=== PATIENT | female | born 1985 | race Caucasian/White ===

== ENCOUNTER 2017-08-13 11:18 | Emergency (ER) | payer MEDICAID ==
[~2017-08-13] VITALS: Ht 156.2 cm; Wt 102.6 kg
[2017-08-13 11:33] VITALS: BP 150/103
--- NOTE | 2017-08-13 11:38 | NUR ---
Patient ambulated to bed 11. RN evaluating patient at bedside.
--- NOTE | 2017-08-13 11:39 | NUR ---
31F BIB FAMILY C/O MID-LOWER ABDOMINAL PAIN X YESTERDAY. HX: GESTATIONAL DIABETES. AAOX4 WITH EVEN AND STEADY GAIT; LUNGS CLEAR BL; PT DENIES ANY FEVER, CP, SOB, OR COUGH AT THIS TIME; PATIENT STATES PAIN OF 3/10 AT THIS TIME; PATIENT POSITIONED FOR COMFORT; HOB ELEVATED; BEDRAILS UP X2; BED DOWN. ER MD MADE AWARE OF PT STATUS.
--- NOTE | 2017-08-13 11:45 | NUR ---
Dr. Aguilar evaluating patient at bedside.
[2017-08-13] MEDS ORDERED: KETOROLAC 30 MG/ML VIAL IM ONE (12:00)
[2017-08-13] MEDS ORDERED: cefTRIAXone 1,000 MG in LIDOCAINE 1% ***ER ONLY *** 2.1 ML IM ONE (12:00)
[2017-08-13] MEDS ORDERED: HYDROmorphone PFS 2 MG/ML SYR IM ONE (12:00)
[2017-08-13 12:48] VITALS: BP 133/90
--- NOTE | 2017-08-13 12:51 | NUR ---
Patient discharged with BP 133/90, DENIES HEADACHE AT THIS TIME, MD MADE AWARE. Written and verbal after care instructions given and explained. Patient alert, oriented and verbalized understanding of instructions. Ambulatory with steady gait. All questions addressed prior to discharge. ID band removed. Patient advised to follow up with PMD. Rx of CIPRO & VOLTAREN given. Patient educated on indication of medication including possible reaction and side effects. Opportunity to ask questions provided and answered.
== END 2017-08-13 12:51 | disposition home or self-care (01) ==
LOC: MED 11:18
DX: N39.0 Urinary tract infection, site not specified (principal); E11.9 Type 2 diabetes mellitus without complications
CPT/HCPCS: 81002; 81025; 96372; 99284; J0696; J1170; J1885; J2001

== ENCOUNTER 2018-02-12 10:49 | Emergency (ER) | payer MEDICAID ==
[~2018-02-12] VITALS: Ht 152.4 cm; Wt 98.9 kg
[~2018-02-12 10:49] MED LIST: ACET-5629 PO; CIPR500T4 PO; MER1I IV; METR250T2 PO
[2018-02-12 10:53] VITALS: BP 147/91
--- NOTE | 2018-02-12 11:00 | NUR ---
PT AMB TO BED 6
--- NOTE | 2018-02-12 11:00 | NUR ---
BIB SELF FOR REQUESTING TO REMOVE PIC LINE REYNA; CYST REMOVAL 01/28/2018. HX; CYST, ECOLI INFECTION,DM. DENIES N/V/D; SKIN IS PINK/WARM/DRY; AAOX4 WITH EVEN AND STEADY GAIT; LUNGS CLEAR BL; HR EVEN AND REGULAR; PT DENIES ANY FEVER, CP, SOB, OR COUGH AT THIS TIME; PATIENT STATES PAIN OF 0/10 AT THIS TIME; VSS; PATIENT POSITIONED FOR COMFORT; HOB ELEVATED; BEDRAILS UP X2; BED DOWN. ER MD MADE AWARE OF PT STATUS.
--- NOTE | 2018-02-12 11:01 | NUR ---
Patient being evaluated by DR CAICEDO at bedside.
--- NOTE | 2018-02-12 11:09 | NUR ---
REMOVED PICC REYNA. PT TOLERATED PROCEDURE WELL.
[2018-02-12 12:07] VITALS: BP 130/90
--- NOTE | 2018-02-12 12:08 | NUR ---
Patient discharged with v/s stable. Written and verbal after care instructions given and explained. Patient alert, oriented and verbalized understanding of instructions. Ambulatory with steady gait. All questions addressed prior to discharge. ID band removed. Patient advised to follow up with PMD. Rx of METFORMIN 500 MG BID AND DIABETIC SUPPLIES given. Patient educated on indication of medication including possible reaction and side effects. Opportunity to ask questions provided and answered.
== END 2018-02-12 12:08 | disposition home or self-care (01) ==
LOC: MED 10:49
DX: Z45.2 Encounter for adjustment and management of vascular access device (principal); E11.9 Type 2 diabetes mellitus without complications; Z79.899 Other long term (current) drug therapy
CPT/HCPCS: 99283

== ENCOUNTER 2019-01-30 11:36 | Emergency (ER) | payer SELFPAY ==
[~2019-01-30] VITALS: Ht 152.4 cm; Wt 102.7 kg
[2019-01-30 11:41] VITALS: BP 159/86
--- NOTE | 2019-01-30 11:46 | NUR ---
PT RETURNED TO LOBBY IN STABLE CONDITION. URINE SAMPLE COLLECTED.
--- NOTE | 2019-01-30 12:24 | NUR ---
PT. AMBULATED TO ER BED 8
--- NOTE | 2019-01-30 12:30 | NUR ---
33 Y FEMALE BIB SELF C/O LOWER ABD PAIN, DENIES PAINFUL URINATION. PAIN 8/10. BM THIS AM. DENIES CONSTIPATION OR DIARRHEA. ABDOMEN TENDER TO TOUCH, SOFT AND ROUND. BOWEL SOUNDS ACTIVE IN ALL 4 QUADRANTS. PT TACHY AT 112. AA0X4. BED IS DOWN, LOCKED, BED RAILX 1, ERMD NOTIFIED. PMH- UNCONTROLLED DIABETES
[2019-01-30 13:31] LABS: APPEARANCE,URINE CLOUDY (CLEAR); BILIRUBIN,URINE NEGATIVE (NEGATIVE); BLOOD, URINE 2+ (NEGATIVE); COLOR,URINE ORANGE (YELLOW); LEUKOCYTE ESTERASE ,URINE 1+ (NEGATIVE); NITRITE, URINE NEGATIVE (NEGATIVE); UGLUCOSE 3+ (NEGATIVE)
[2019-01-30 13:32] LABS: BASOPHILS # (AUTO) 0.1 K/uL (0.00-0.22); EOSINOPHILS # (AUTO) 0.1 K/uL (0-0.4); EOSINOPHILS % (AUTO) 0.5 % (0.0-4.0); HEMATOCRIT 38.7 % (36-48); HEMOGLOBIN 12.8 g/dL (12.0-16.0); LYMPHOCYTES # (AUTO) 1.8 K/uL (2.5-16.5); LYMPHOCYTES % (AUTO) 13.9 % (20.5-51.1); MEAN CORPUSCULAR HEMOGLOBIN 28 pg (27-31); MEAN CORPUSCULAR HGB CONC 33 g/dL (33-37); MEAN CORPUSCULAR VOLUME 84.6 fL (80-94); MONOCYTES # (AUTO) 0.8 K/uL (0.8-1.0); MONOCYTES % (AUTO) 6.6 % (1.7-9.3); PLATELET COUNT (AUTO) 315 K/uL (140-450); RED BLOOD CELL COUNT(AUTO) 4.58 MIL/uL (4.20-5.40); RED CELL DISTRIBUTION WIDTH 13.8 % (11.6-13.7); WHITE BLOOD COUNT (AUTO) 12.9 K/uL (4.8-10.8)
[2019-01-30 13:44] LABS: RBC,URINE >100 /HPF (0-5); WBC,URINE TOO MANY TO COUNT /HPF (0-5)
[2019-01-30 13:48] LABS: ALBUMIN 3.1 g/dL (3.4-5.0); ANION GAP 12.8 (8-16); CREATININE 0.7 mg/dL (0.6-1.3); POTASSIUM 3.8 mmol/L (3.5-5.1); TOTAL BILIRUBIN 0.5 mg/dL (0.0-1.0)
--- NOTE | 2019-01-30 13:50 | NUR ---
VSS AT THIS TIME, PT COMPAINING OF 8/10 PAIN. PT LAYING IN BED, AA0X4
--- NOTE | 2019-01-30 13:52 | NUR ---
DR RIVERA AT BEDSIDE
[2019-01-30] MEDS ORDERED: NACL 0.9% 1,000 ML IV ONE (13:55)
[2019-01-30] MEDS ORDERED: KETOROLAC 30 MG/ML VIAL IVP ONE (13:55)
[2019-01-30] MEDS ORDERED: ONDANSETRON 4 MG/2 ML VIAL IVP ONE (13:55)
--- NOTE | 2019-01-30 14:03 | NUR ---
PT BEING TAKEN TO CT
--- NOTE | 2019-01-30 15:05 | NUR ---
PT SLEEPIN IN BED
[2019-01-30] MEDS ORDERED: cefTRIAXone 1,000 MG VIAL ONE (15:36)
--- NOTE | 2019-01-30 16:20 | NUR ---
PT SLEEPING IN BED
[2019-01-30 17:07] VITALS: BP 127/75
--- NOTE | 2019-01-30 17:07 | NUR ---
Patient discharged with v/s stable. Written and verbal after care instructions given and explained. Patient alert, oriented and verbalized understanding of instructions. Ambulatory with steady gait. All questions addressed prior to discharge. ID band removed. Patient advised to follow up with PMD. Rx of KELFEX AND NORCO AND ZOFRAN given. Patient educated on indication of medication including possible reaction and side effects. Opportunity to ask questions provided and answered.
== END 2019-01-30 17:07 | disposition home or self-care (01) ==
LOC: MED 11:36
DX: N39.0 Urinary tract infection, site not specified (principal); E11.9 Type 2 diabetes mellitus without complications; R03.0 Elevated blood-pressure reading, without diagnosis of hypertension; Z79.899 Other long term (current) drug therapy
CPT/HCPCS: 36415; 74176; 76830; 80053; 81001; 81025; 82948; 83690; 85025; 87086; 87186; 93976; 96365; 96375; 99284; J0696; J1885; J2405; J7030; J7060; Q0092

== ENCOUNTER 2022-03-07 09:19 | Inpatient (IN) | payer MEDICAID ==
[~2022-03-07] VITALS: Ht 167.6 cm; Wt 83.9 kg
[~2022-03-07 09:19] MED LIST changes: -MER1I IV; +MERO1VIA13 IV; +METR-520 PO; -METR250T2 PO
--- NOTE | 2022-03-07 09:24 | NUR ---
PT AMB TO BED 11.
[2022-03-07 09:39] VITALS: BP 152/91
[2022-03-07] MEDS ORDERED: PIPERACILLIN/TAZOBACTAM 3.375 GM in DEXTROSE 5% 50 ML IV ONE (10:00)
[2022-03-07] MEDS ORDERED: MORPHINE SULFATE 4 MG/ML SYR IVP ONE (10:00)
[2022-03-07] MEDS ORDERED: NACL 0.9% 1,000 ML IV ONE (10:00)
[2022-03-07] MEDS ORDERED: ONDANSETRON 4 MG/2 ML VIAL IVP ONE (10:00)
[2022-03-07] MEDS ORDERED: PIPERACILLIN/TAZOBACTAM 3.375 GM VIAL IV ONE (10:09)
--- NOTE | 2022-03-07 10:13 | NUR ---
AGUILAR SPECIMEN OBTAINED AND HANDED TO CPT NAN AT BEDSIDE.
--- NOTE | 2022-03-07 10:23 | NUR ---
IV INSERTED TO LEFT AC #20GUAGE, MEDICATED PER ORDER. FLUIDS INFUSING TOLERATING WELL.
[2022-03-07 10:37] LABS: BASOPHILS % (AUTO) 0.5 % (0.0-2.0); EOSINOPHILS # (AUTO) 0.2 K/uL (0-0.4); EOSINOPHILS % (AUTO) 2.1 % (0.0-4.0); HEMATOCRIT 39.8 % (36-48); HEMOGLOBIN 13.5 g/dL (12.0-16.0); LYMPHOCYTES % (AUTO) 31.9 % (20.5-51.1); MEAN CORPUSCULAR HEMOGLOBIN 27 pg (27-31); MEAN CORPUSCULAR HGB CONC 34 g/dL (33-37); MEAN CORPUSCULAR VOLUME 80.6 fL (80-94); MONOCYTES # (AUTO) 0.6 K/uL (0.8-1.0); NEUTROPHILS # (AUTO) 5.7 K/uL (1.8-7.7); NEUTROPHILS % (AUTO) 59.5 % (42.2-75.2); PLATELET COUNT (AUTO) 331 K/uL (140-450); RED BLOOD CELL COUNT(AUTO) 4.94 MIL/uL (4.20-5.40); RED CELL DISTRIBUTION WIDTH 13.4 % (11.6-13.7); WHITE BLOOD COUNT (AUTO) 9.6 K/uL (4.8-10.8)
[2022-03-07 10:53] LABS: ALBUMIN 3.3 g/dL (3.4-5.0); ANION GAP 18.5 (8-16); CARBON DIOXIDE 20.4 mmol/L (21-32); CREATININE 0.6 mg/dL (0.6-1.3); POTASSIUM 3.9 mmol/L (3.5-5.1); TOTAL BILIRUBIN 0.3 mg/dL (0.0-1.0)
--- NOTE | 2022-03-07 11:59 | NUR ---
URINE SPECIMEN OBTAINED AND WALKED TO LAB, HANDED TO CPT. NAN
[2022-03-07 12:12] LABS: APPEARANCE,URINE HAZY (CLEAR); BILIRUBIN,URINE NEGATIVE (NEGATIVE); BLOOD, URINE 2+ (NEGATIVE); COLOR,URINE YELLOW (YELLOW); LEUKOCYTE ESTERASE ,URINE TRACE (NEGATIVE); NITRITE, URINE POSITIVE (NEGATIVE); PH,URINE 5.5 (5.0-9.0); UGLUCOSE 3+ (NEGATIVE)
[2022-03-07 12:19] LABS: RBC,URINE 11-20 (MOD) /HPF (0-5)
--- NOTE | 2022-03-07 12:26 | NUR ---
PT BACK FROM CT
--- NOTE | 2022-03-07 16:56 | NUR ---
PATIENT HAS PAIN. NO PAIN MEDICATIONS ARE ORDERED. INFORMED DR. ARMAS AND RECIEVED NEW ORDERS FOR IV MORPHINE 2 MG Q4 HOURS PRN. WILL CARRY OUT ORDERS.
[2022-03-07] MEDS: MORPHINE SULFATE 2 MG/ML SYR IVP PRN ×2 (17:21→23:19)
--- NOTE | 2022-03-07 17:34 | NUR ---
Patient will be admitted to care of DR. ARMAS. Admited to TELEMETRY . Will go to room 123-A. Belongings list completed. Report to NEMO ADAMS.
[2022-03-07 17:50] VITALS: BP 141/79
--- NOTE | 2022-03-07 17:50 | NUR ---
RECEIVED PATIENT FROM ER NURSE VIA CHLOÉ. PT ADMITTED FOR CELLULITIS PELVIC, HYPERGLYCEMIA. PT IS AOX4, ABLE TO MAKE NEEDS KNOWN. RESPIRATIONS EVEN AND UNLABORED. ON ROOM AIR AND NO DISTRESS NOTED. SKIN IS WARM, DRY, AND NON-INTACT. NOTED ABSCESS ON RIGHT PELVIC AREA. IV SITE ON LAC 20G. SALINE LOCKED. ABD IS SOFT, FLAT, AND NON-DISTENDED. BOWEL SOUNDS ACTIVE IN ALL QUADRANTS. PAIN IS 5/10. MORPHINE WAS GIVEN IN ER. WILL MEDICATE PER MD ORDERED. PLAN OF CARE DISCUSSED. SAFETY PRECAUTIONS IN PLACE. CALL LIGHT WITHIN REACH. WILL CONTINUE TO MONITOR.
--- NOTE | 2022-03-07 18:23 | NUR ---
The patient's care was reviewed and supervised by ED Agency Nurse 7, RN, RN.
--- NOTE | 2022-03-07 19:35 | NUR ---
ENDORSED TO COOLING SYSTEM OPERATOR NURSE FOR CONTINUITY OF CARE. PT IS STABLE.
--- NOTE | 2022-03-07 20:26 | NUR ---
THIS IS AN ADMISSION FOR A 36 YEAR OLD FEMALE UNDER THE CARE OF DOCTOR ARMAS FOR CELLULITIS AND HYPERGLYCEMIA. RALPH PERRY RN
[2022-03-07 20:36] VITALS: BP 140/90
[2022-03-07] MEDS ORDERED: ACETAMINOPHEN 325 MG TAB PO PRN (23:05)
[2022-03-07 23:49] VITALS: BP 130/89
[2022-03-08] MEDS ORDERED: PIPERACILLIN/TAZOBACTAM 3.375 GM VIAL IV ONE ×2 (00:25→05:22)
[2022-03-08] MEDS: PIPERACILLIN/TAZOBACTAM 3.375 GM in DEXTROSE 5% 50 ML IV SCH ×5 (00:25→23:32)
[2022-03-08 04:24] VITALS: BP 126/77
--- NOTE | 2022-03-08 06:58 | NUR ---
PATIENT HAS BEEN SCREENED AND CATEGORIZED HIGH NUTRITION RISK. PATIENT WILL BE SEEN WITHIN 1-2 DAYS OF ADMISSION. 03/08/22-03/09/22 ABHISHEK MCCARTHY MS, RDN
[2022-03-08] MEDS: MORPHINE SULFATE 2 MG/ML SYR IVP PRN ×2 (09:03→18:28)
[2022-03-08] MEDS: ONDANSETRON 4 MG/2 ML VIAL IVP PRN ×2 (09:03→18:28)
--- NOTE | 2022-03-08 19:53 | NUR ---
GET THE REPORT FROM MORNING NURSE JANE,PATIENT IS LYING ON BED, PATIENT IS ALERT AND ORIENTED X4 , CALL LIGHT IS WITHIN THE REACH ,WILL CONTINUE TO MONITOR PATIENT.
[2022-03-08 20:00] VITALS: BP 136/90
--- NOTE | 2022-03-08 20:00 | NUR ---
PATIENT IS LYING ON BED,VITAL SIGN IS WITHIN THE NORMAL RANGE, NO ANY COMPLAIN OF PAIN OR SHORTNESS OF BREATH AT THIS TIME, CALL LIGHT IS WITHIN THE REACH, WILL CONTINUE TO MONITOR PATIENT.
[2022-03-08] MEDS: HYDROcodone/APAP 5/325 MG 1 TAB TAB PO PRN (20:32)
--- NOTE | 2022-03-08 20:32 | NUR ---
PATIENT IS COMPLAINING OF PAIN AT HER RIGHT SITE ON HER PERINEAL AREA 6/, MEDICATED WITH NORCO 5/325 MG PO PRN PER DOCTOR ORDER, VITAL SIGN IS WITHIN THE NORMAL RANGE,WILL REASSESS PAIN IN HOUR, CALL LIGHT IS WITHIN THE REACH, WILL CONTINUE TO MONITOR PATIENT.
[2022-03-09] VITALS: BP 134/88
--- NOTE | 2022-03-09 00:31 | NUR ---
PATIENT IS LYING ON BED, NO ANY COMPLAIN OF PAIN OR SHORTNESS OF BREATH AT THIS TIME, ALL SCHEDULE MEDICATION IS GIVEN ASPER DOCTOR ORDER,VITAL SIGN IS WITHIN THE NORMAL RANGE , CALL LIGHT IS WITHIN THE REACH, WILL CONTINUE TO MONITOR PATIENT.
[2022-03-09 04:00] VITALS: BP 139/89
--- NOTE | 2022-03-09 04:17 | NUR ---
PATIENT IS LYING ON BED, NO ANY COMPLAIN OF PAIN OR SHORTNESS OF BREATH AT THIS TIME, VITAL SIGN IS WITHIN THE NORMAL RANGE , CALL LIGHT IS WITHIN THE REACH, WILL CONTINUE TO MONITOR PATIENT.
--- NOTE | 2022-03-09 04:37 | NUR ---
MORNING NURSE TOLD IN REPORT THAT PATIENT IS GOING FOR I&D IN MORNING, BUT LATER I CHECKEDAND THERE IS NO ORDER FOR I&D AND NPO , MASSAGE DOCTOR MAI ABOUT NO ORDER IN EMAR, STILL WAITING FOR DOCTOR TO RESPONSE , WILL CONTINUE TO MONITOR PATIENT.
[2022-03-09] MEDS: PIPERACILLIN/TAZOBACTAM 3.375 GM in DEXTROSE 5% 50 ML IV SCH ×3 (05:18→18:26)
--- NOTE | 2022-03-09 05:20 | NUR ---
PATIENT IS LYING ON BED , ALL SCHEDULE MEDICATION IS GIVEN PER DOCTOR ORDER, CALL LIGHT IS WITHIN THE REACH, WILL CONTINUE TO MONITOR PATIENT.
[2022-03-09] MEDS: MORPHINE SULFATE 2 MG/ML SYR IVP PRN (05:57)
--- NOTE | 2022-03-09 06:08 | NUR ---
PATIENT IS COMPLAINING OF PAIN 8/10 , MORPHINE 2MG/ML IV PRN IS GIVEN PER DOCTOR ORDER, WILL REASSESS PAIN LAVAL IN HOUR, CALL LIGHT IS WITHIN THE REACH,WILL CONTINUE TO MONITOR PATIENT.
--- NOTE | 2022-03-09 07:30 | NUR ---
GAVE THE REPORT TO MORNING NURSE DELLA FOR CONTINUOS OF CARE, PATIENT IS STABLE
--- NOTE | 2022-03-09 07:31 | NUR ---
RECEIVED REPORT FROM FIELD TECHNICIAN NURSE FOR CONTINUITY OF CARE. PT IN BED SLEEPING AT THIS TIME. RESPIRATIONS ARE EVEN AND UNLABORED ON ROOM AIR. NO SIGNS OF DISTRESS NOTED. PT IS ALERT AND ORIENTED X4, ABLE TO VERBALIZE NEEDS, ABLE TO FOLLOW COMMANDS. ABD IS NONTENDER, NONDISTENDED WITH BOWEL SOUNDS PRESENT. PT IS CONTINENT OF BOWEL AND BLADDER, ABLE TO AMBULATE TO REST ROOM INDEPENDENTLY. PT HAS IV TO L AC 20G, INTACT AND PATENT. SKIN IS WARM, DRY, AND INTACT. PT HAS R UPPER JOSE AREA ABSCESS, SOME DRAINAGE NOTED, COVERED. CALL LIGHT WITHIN REACH. ALL SAFETY MEASURES IN PLACE. WILL CONTINUE TO MONITOR.
[2022-03-09 08:00] VITALS: BP 132/88
--- NOTE | 2022-03-09 10:52 | NUR ---
PT AWAKE AND ASKING FOR ASSISTANCE TO REST ROOM. ASSISTED PT. PT TOLERATED WELL. WILL CONTINUE TO MONITOR.
--- NOTE | 2022-03-09 12:30 | NUR ---
GAVE TAZOBACTAM IVPG TO PT. IV INFUSING WELL.
--- NOTE | 2022-03-09 13:45 | NUR ---
PT IN BED, REQUEST TO ASSIST TO CLEAN HER UP AND TO COVER DRAINING ABSCESS WITH GAUZE. ASSISTED PT. PT TOLERATED WELL. WILL CONTINUE TO MONITOR.
--- NOTE | 2022-03-09 14:04 | NUR ---
DC PLANNING: THE PATIENT ADMITTED WITH C/O REDNESS PAIN AND SWELLING TO HER RIGHT PELVIC AREA X 1 WEEK. H/O GESTATIONAL DM. GLUCOSE 308, ESR 60, NA+ 135, CT PELVIS SHOWS LABIAL CYST. UA+, PATIENT STARTED ON ZOSYN IV, NORCO AND MORPHINE. ORDERS FOR ROLLER SHOP SUPERVISOR CONSULT. CM SPOKE WITH THE PATIENT AT BEDSIDE AND CONFIRMED HER CHANGE OF ADDRESS AND PHONE NUMBER, CHANGES GIVEN TO ADMITTING. THE PATIENT LIVES IN [place] IN A SINGLE STORY HOUSE WITH HER PARENTS BROTHER AND 6 YEAR OLD SON. SHE IS NORMALLY INDEPENDENT IN ALL ACTIVITIES, NO H/O HOME HEALTH OR DME. HAS INCOME OF $1200/MONTH FROM CHILD SUPPORT AND A CLEANING JOB. SHE DOES NOT HAVE A PMD BUT HAD A WELLNESS CHECK AT A CLINIC ON [address] NEAR [place] THREE YEARS AGO. SHE HAS HAD FULL SCOPE M/VIMAL IN THE PAST AND WAS ADVISED TO FOLLOW UP ON HER PRESUMPTIVE M/VIMAL WITHIN 30 DAYS TO GET INSURANCE IN PLACE. THE PATIENT WILL CONTINUE ON IV ABX AND POTENTIALLY BE DC'D IN AM ON PO ABX. THE PATIENTS FAMILY WILL PROVIDE TRANSPORT HOME, CM WILL FOLLOW.
[2022-03-09 16:00] VITALS: BP 130/75
--- NOTE | 2022-03-09 16:33 | NUR ---
03/09/22 RD INITIAL ASSESSMENT COMPLETED PLEASE REFER TO NUTRITION ASSESSMENT UNDER CARE ACTIVITY FOR ESTIMATED NUTRITIONAL NEEDS. 1. RECOMMEND REGULAR DIET IF PT BLOOD SUGAR IS WNL 2. MONITOR BLOOD GLUCOSE LEVELS 3. RD TO FOLLOW-UP 7 DAYS, LOW RISK ADRIANA SUAREZ RD
[2022-03-09] MEDS: HYDROcodone/APAP 5/325 MG 1 TAB TAB PO PRN (16:40)
--- NOTE | 2022-03-09 16:48 | NUR ---
PT IN BED ASKING IF SHE IS ABLE TO WALK AROUND UNIT. INFORMED PT THAT SHE IS ABLE TO, HOWEVER SHE DOES NEED TO WEAR A MASK. PT AMBULATED A FEW FEET AROUND UNIT. STATES PAIN IS GETTING BETTER. WILL CONTINUE TO MONITOR.
--- NOTE | 2022-03-09 19:10 | NUR ---
ENDORSED PT TO MANAGEMENT NURSE RN NURSE FOR CONTINUITY OF CARE. PT IS STABLE.
--- NOTE | 2022-03-09 19:11 | NUR ---
RECEIVED PATIENT FROM [facility] FOR CONTINUITY OF CARE. PATIENT WAS ALERT AND ORIENT X 4. WAS ABLE TO GO THO THE RESTROOM WITHOUT ASSISTANCE. PATIENT DENIED ANY PAIN/DISCOMFORT. PATIENT BREATHING UNLABORED. FATHER AT BEDSIDE FOR VISIT. DRESSING ON ABSCESS CLEAN AND DRY. PATIENT WAS ADVISED TO CALL NURSING WHEN IT NEEDS TO CHANGED PRN. SIDE RAILS UP X2. CALL LIGHT WITHIN REACH. ENCOURAGED TO USE FOR ASSISTANCE AND NEEDS. [email or web address]
--- NOTE | 2022-03-09 21:25 | NUR ---
PATIENT IN BED ASLEEP. SIDE RAILS X 2 FOR ASSISTANCE TO AMBULATE AND SELF ADJUST. PATIENT HAS CALL LIGHT WITHIN REACH. PATIENT WAS OBSERVED BREATHING WITHOUT ANY S/SX OF DISTRESS. NO NOTED S/SX OF PAIN/DISCOMFORT. [email or web address]
--- NOTE | 2022-03-09 23:58 | NUR ---
PATIENT REQUEST PRN PAIN MANAGEMENT. RN WAS NOTIFIED TO GIVE IVP MEDICATION 05/19 PAIN. NURSING WILL MONITOR FOR PAIN RELIEF IN ONE HOUR AFTER ADMINISTRATION. [email or web address]
[2022-03-10] VITALS: BP 121/74
[2022-03-10] MEDS: PIPERACILLIN/TAZOBACTAM 3.375 GM in DEXTROSE 5% 50 ML IV SCH ×3 (00:17→11:19)
[2022-03-10] MEDS: MORPHINE SULFATE 2 MG/ML SYR IVP PRN (00:27)
--- NOTE | 2022-03-10 01:31 | NUR ---
PATIENT IN BED HOB ELEVATED FOR COMFORT. PATIENT HAS HAD HER PRN MEDICATION PAIN MEDICATION. NO ADVERSE REACTION. PATIENT HAS HER EAR PHONES ON FOR RELAXATION. PATIENT HAS CALL LIGHT WITHIN REACH FOR ANY NEEDS AND ASSISTANCE. [email or web address]
--- NOTE | 2022-03-10 07:44 | NUR ---
RECEIVED REPORT FROM NIGHTSHIFT NURSE FOR CONTINUITY OF CARE. PLAN OF CARE DISCUSSED. PT CURRENTLY SLEEPING, A/OX4. BREATHING EVEN, REGULAR AND UNLABORED ON RA. PT AMBULATORY, CONTINENT OF THE BOWEL AND BLADDER. ABSCESS ON THE PERINEAL AREA NOTED. IV SITE CLEAN, DRY AND INTACT. PT DENIES PAIN AT THIS TIME.
--- NOTE | 2022-03-10 07:44 | NUR ---
ENDORSED PATIENT TO FREDDY CHESTER FOR CONTINUITY OF CARE. PATIENT WAS STABLE AT THE CHANGE OF SHIFT. [email or web address]
[2022-03-10 08:00] VITALS: BP 118/83
--- NOTE | 2022-03-10 09:05 | NUR ---
DR. MANUEL ROUNDED ON PT TO DISCUSS PLAN OF CARE. PER MD, PT WILL BE DISCHARGED LATER TODAY AFTER LAST ROUND OF ZOSYN AT 12:00.
[2022-03-10] MEDS ORDERED: METR-520 PO (10:34)
[2022-03-10] MEDS ORDERED: ACET-5629 PO (10:34)
[2022-03-10] MEDS ORDERED: AMOX-999 PO (10:34)
[2022-03-10 11:31] LABS: ANION GAP 12.1 (8-16); CARBON DIOXIDE 26.1 mmol/L (21-32); CREATININE 0.7 mg/dL (0.6-1.3); POTASSIUM 4.2 mmol/L (3.5-5.1)
[2022-03-10 11:36] LABS: MAGNESIUM 1.9 mg/dL (1.8-2.4); PHOSPHORUS 3.5 mg/dL (2.5-4.9)
[2022-03-10 12:00] LABS: BASOPHILS # (AUTO) 0.1 K/uL (0.00-0.22); BASOPHILS % (AUTO) 0.7 % (0.0-2.0); EOSINOPHILS # (AUTO) 0.2 K/uL (0-0.4); EOSINOPHILS % (AUTO) 2.2 % (0.0-4.0); HEMATOCRIT 40.3 % (36-48); HEMOGLOBIN 13.3 g/dL (12.0-16.0); LYMPHOCYTES # (AUTO) 2.1 K/uL (2.5-16.5); LYMPHOCYTES % (AUTO) 29.7 % (20.5-51.1); MEAN CORPUSCULAR HEMOGLOBIN 27 pg (27-31); MEAN CORPUSCULAR HGB CONC 33 g/dL (33-37); MEAN CORPUSCULAR VOLUME 82.4 fL (80-94); MONOCYTES # (AUTO) 0.4 K/uL (0.8-1.0); MONOCYTES % (AUTO) 5.8 % (1.7-9.3); NEUTROPHILS # (AUTO) 4.3 K/uL (1.8-7.7); NEUTROPHILS % (AUTO) 61.6 % (42.2-75.2); PLATELET COUNT (AUTO) 337 K/uL (140-450); RED BLOOD CELL COUNT(AUTO) 4.89 MIL/uL (4.20-5.40); RED CELL DISTRIBUTION WIDTH 13.9 % (11.6-13.7)
[2022-03-10 12:15] VITALS: BP 118/83
[2022-03-10] MEDS ORDERED: METF-1243 PO (12:22)
--- NOTE | 2022-03-10 13:00 | NUR ---
PT DISCHARGED IN STABLE CONDITION. PT WAS ABLE TO VERBALIZE UNDERSTANDING AND SIGN ALL DISCHARGE TEACHING AND PAPERWORK. PICTURE OF PERINEAL ABSCESS WAS TAKEN UPON DISCHARGE. PT WAS ESCORTED TO [facility] VIA WHEELCHAIR BY MARIS.
== END 2022-03-10 13:20 | disposition home or self-care (01) | DRG 531 ==
LOC: MED 09:19 → MTU 13:57
PROVIDERS: ADMIT Student in an Organized Health Care Education/Training Program; ATTEND Student in an Organized Health Care Education/Training Program
DX: N76.2 Acute vulvitis (principal); E44.1 Mild protein-calorie malnutrition; N39.0 Urinary tract infection, site not specified; N76.4 Abscess of vulva; E87.1 Hypo-osmolality and hyponatremia; Z20.822 Contact with and (suspected) exposure to COVID-19; R73.9 Hyperglycemia, unspecified; Z79.899 Other long term (current) drug therapy; Z79.1 Long term (current) use of non-steroidal anti-inflammatories (NSAID); Z79.891 Long term (current) use of opiate analgesic; Z86.32 Personal history of gestational diabetes; Z98.891 History of uterine scar from previous surgery; Z68.29 Body mass index [BMI] 29.0-29.9, adult
CPT/HCPCS: 36415; 72193; 80048; 80053; 81001; 83036; 83605; 83735; 84100; 84703; 85025; 85651; 86140; 87040; 87081; 87086; 96365; 96375; 99285; J2270; J2405; J2543; J7030; J7060; Q9967

== ENCOUNTER 2022-09-09 10:00 | Day surgery (SDC) | payer OTHER ==
[~2022-09-09] VITALS: Ht 152.4 cm; Wt 97.5 kg
[~2022-09-09 10:00] MED LIST changes: +AMOX-999 PO; -CIPR500T4 PO; -MERO1VIA13 IV; +METF-1243 PO
[2022-09-09] MEDS ORDERED: ceFAZolin 1,000 MG VIAL ONE (11:22)
[2022-09-09] MEDS ORDERED: BUPIVACAINE-MPF/EPI 0.25% 10 ML VIAL INJ ONE (11:58)
[2022-09-09] MEDS ORDERED: fentaNYL citrate 0.05 MG/ML VIAL ONE (12:30)
[2022-09-09] MEDS ORDERED: KETOROLAC 30 MG/ML VIAL ONE (13:20)
[2022-09-09] MEDS ORDERED: PROPOFOL 200 MG/20 ML VIAL IV ONE (13:20)
[2022-09-09] MEDS ORDERED: SUCCINYLCHOLINE CHLORIDE 200 MG/10 ML VIAL IVP ONE (13:20)
[2022-09-09] MEDS ORDERED: ROCURONIUM 50 MG/5 ML VIAL IV ONE (13:20)
[2022-09-09] MEDS ORDERED: ONDANSETRON 4 MG/2 ML VIAL ONE (13:20)
[2022-09-09] MEDS ORDERED: GLYCOPYRROLATE 0.2 MG/ML VIAL ONE ×3 (13:21)
[2022-09-09] MEDS ORDERED: NEOSTIGMINE 1:1000 10 MG/10 ML VIAL ONE (13:21)
[2022-09-09] MEDS ORDERED: KETOROLAC 30 MG/ML VIAL IVP SCH (13:39)
[2022-09-09] MEDS ORDERED: LABETALOL 20 MG/4 ML VIAL IVP PRN (13:42)
[2022-09-09] MEDS ORDERED: METOCLOPRAMIDE 10 MG/2 ML INJ VIAL IVP PRN (13:42)
[2022-09-09] MEDS ORDERED: hydrALAZINE 20 MG/ML VIAL IVP PRN (13:43)
[2022-09-09] MEDS ORDERED: BLOOD GLUCOSE MONITORING 1 DEV DEV FS SCH (13:45)
[2022-09-09] MEDS ORDERED: NACL 0.9% 1,000 ML IV SCH (13:45)
[2022-09-09] MEDS: HYDROmorphone 1 MG/ML AMP IVP PRN ×4 (13:45→14:15)
[2022-09-09] MEDS ORDERED: HYDROmorphone PFS 2 MG/ML SYR ONE (14:01)
[2022-09-09] MEDS ORDERED: INSULIN LISPRO 100 UNITS/ML VIAL SUBQ ONE (14:05)
[2022-09-10] MEDS ORDERED: SEVOFLURANE 250 ML BTL INH ONE (12:23)
== END 2022-09-09 16:40 | disposition home or self-care (01) ==
LOC: MDS 10:00 → MMU 10:01 → MDS 16:40
PROVIDERS: ATTEND Obstetrics & Gynecology
DX: N83.202 Unspecified ovarian cyst, left side (principal); Z20.822 Contact with and (suspected) exposure to COVID-19
CPT/HCPCS: 58661; 87426; J0330; J0690; J1170; J1815; J1885; J2405; J2704; J2710; J3010; J3490; J7060

== ENCOUNTER 2023-07-26 06:05 | Day surgery (SDC) | payer OTHER ==
[~2023-07-26] VITALS: Ht 152.4 cm; Wt 97.1 kg
[~2023-07-26 06:05] MED LIST changes: -AMOX-999 PO; -METF-1243 PO; -METR-520 PO
[2023-07-26] MEDS ORDERED: ONDANSETRON 4 MG/2 ML VIAL ONE (07:18)
[2023-07-26] MEDS ORDERED: PROPOFOL 200 MG/20 ML VIAL IV ONE (07:18)
[2023-07-26] MEDS ORDERED: fentaNYL citrate 0.05 MG/ML VIAL ONE (07:34)
[2023-07-26] MEDS ORDERED: MIDAZOLAM 2 MG/2 ML VIAL ONE (07:34)
[2023-07-26] MEDS ORDERED: ACETAMINOPHEN 100 ML IV ONE (09:00)
[2023-07-26] MEDS ORDERED: INSULIN LISPRO SLIDING SCALE 100 UNITS/ML VIAL SUBQ PRN (09:05)
[2023-07-26] MEDS: HYDROmorphone 1 MG/ML AMP IVP PRN ×3 (09:05→09:25)
[2023-07-26] MEDS ORDERED: HYDROmorphone PFS 2 MG/ML SYR ONE (09:10)
[2023-07-26] MEDS ORDERED: ACETAMINOPHEN 100 ML IV PRN (09:15)
== END 2023-07-26 11:46 | disposition home or self-care (01) ==
LOC: MDS 06:05 → MMU 06:37 → MDS 11:46
PROVIDERS: ATTEND Obstetrics & Gynecology
DX: N93.9 Abnormal uterine and vaginal bleeding, unspecified (principal); N84.0 Polyp of corpus uteri; R10.2 Pelvic and perineal pain; E11.9 Type 2 diabetes mellitus without complications; I10 Essential (primary) hypertension; E03.9 Hypothyroidism, unspecified; K21.9 Gastro-esophageal reflux disease without esophagitis; E66.01 Morbid (severe) obesity due to excess calories; Z68.41 Body mass index [BMI] 40.0-44.9, adult; Z79.899 Other long term (current) drug therapy
CPT/HCPCS: 58558; 82948; 88305; J1170; J2250; J2405; J2704; J3010